=== PATIENT | female | born 1955 | race African-American/Black ===

== ENCOUNTER → 2020-06-22 | Outpatient (CLI) | payer OTHER ==
[~2020-06-22] MED LIST: BAYER CHEWABLE81 MG PO; CELEXA10 MG PO; COZAAR 25 MG TA25 M1 PO; GLYBURIDE 5 MG T5 M1; HYDROCHLOROTHIA25 M2 PO; JANUVIA100 MG PO; LISINOPRIL10 MG; LOVASTAT40 PO; METFORMIN HCL500 MG PO; NEURONTIN 300300 M1 PO; OMEPRAZOLE40 MG PO; PHENERGAN 25 MG25 M1 PO; POTASSIUM20 PO; ZOCOR 10 MG TAB10 MG
== END ==
LOC: LAB 11:15
PROVIDERS: ATTEND Specialist
DX: Z01.812 Encounter for preprocedural laboratory examination (principal); Z20.828 Contact with and (suspected) exposure to other viral communicable diseases

== ENCOUNTER → 2020-06-27 | Outpatient (CLI) | payer OTHER ==
[~2020-06-27] VITALS: Ht 162.6 cm; Wt 104.3 kg
--- NOTE | 2020-06-28 12:53 | P ---
[facility] [place] [address] PROCEDURE REPORT Name: ERROL SORENSEN Room #: REG CHANDA Gregoria#: [id number] Admission: 06/27/20 Attend Phys: Emile Walker Discharge: Date of : 53 Report #: [id number] THIS REPORT FOR: cc: DANDRE EDWARDS Physician not on staff Emile Richardson MD ~ CC: DANDRE Richardson Physician staff DATE OF SERVICE: 06/27/2020 PROCEDURE PERFORMED: Colonoscopy with biopsies. HISTORY OF PRESENT ILLNESS: The patient is a 65-year-old female here for a screening colonoscopy. She denies any symptoms. She does have a family history of colon cancer in her mother. DESCRIPTION OF PROCEDURE: The risks and benefits of the procedure were explained to the patient. Those risks including but not limited to bleeding, perforation and the risk of sedation. She understood these risks and gave informed consent. Sedation was given using propofol per Anesthesia. Next, a digital rectal exam was initially performed, which was normal. Next, using a standard Olympus colonoscope, the scope was placed in the patient's anus and advanced under direct vision to the cecum. The overall prep was excellent. In the cecum, there was a 3 mm sessile polyp, this was removed with cold forceps, otherwise normal. The ileocecal valve was normal. The ascending colon was normal. In the transverse colon, a 5 mm sessile polyp was noted, also removed with cold forceps, otherwise normal. The descending and sigmoid colon were normal. The rectal mucosa was normal. On retroflexion, no abnormalities were noted. The scope was then withdrawn and the procedure terminated. The patient tolerated the procedure well. IMPRESSION: 1. Two small colonic polyps. 2. Otherwise, normal colonoscopy. RECOMMENDATIONS: 1. Await biopsy results. 2. Repeat colonoscopy in 5 years. [facility] [address] [place] [address] PROCEDURE REPORT Name: ERROL SORENSEN Room #: REG [facility].#: [id number] Admission: 06/27/20 Attend Phys: Emile Walker Discharge: Date of : 53 Report #: [id number] Thank you for allowing me to participate in her care. <ELECTRONICALLY SIGNED> By: Emile Richardson MD 06/28/20 1253 1058 1247 Emile Richardson MD /nt
--- NOTE | 2020-06-28 12:53 | P ---
[facility] [place] [address] PROCEDURE REPORT Name: ERROL SORENSEN Room #: REG CHANDA Bush[facility]cruzKattMarycruz#: [id number] Admission: 06/27/20 Attend Phys: Emile Walker Discharge: Date of : 53 Report #: [id number] THIS REPORT FOR: cc: DANDRE EDWARDS Physician not on staff Emile Richardson MD ~ CC: DANDRE Edwards Physician staff DATE OF SERVICE: 06/27/2020 PROCEDURE PERFORMED: Upper endoscopy with esophageal dilation. HISTORY OF PRESENT ILLNESS: The patient is a 65-year-old female with a history of gastroesophageal reflux disease, taking Prilosec on a daily basis. She does complain of dysphagia. Apparently has undergone a previous upper endoscopy with dilation in the past, which was helpful several years ago. She denies any heartburn symptoms. Plan is for EGD and colonoscopy today. DESCRIPTION OF PROCEDURE: The risks and benefits of the procedure were explained to the patient, those risks including but not limited to bleeding, perforation and the risk of sedation. She understood these risks and gave informed consent. Sedation was given using propofol per anesthesia. Next, using a standard Olympus upper endoscope, the scope was placed in the patient's mouth and advanced under direct vision through the esophagus, stomach and into the second portion of the duodenum. The larynx was normal in appearance. The upper and mid esophagus was normal. In the distal esophagus, a mild Schatzki's ring was noted. No evidence of esophagitis. Upon entering the stomach, a small hiatal hernia was noted. Overall, the gastric mucosa was normal. The pylorus was normal and patent. The duodenal bulb, first and second portion were all normal. The scope was then brought back up into the patient's stomach and a Savary guidewire was inserted through the scope, leaving the guidewire in place as the scope was then withdrawn. Next, a 54-Russian Savary dilation of the esophagus was then performed without difficulty. The wire and dilator were removed. The scope was reintroduced into the patient's stomach. A small mucosal tear was noted. No evidence of bleeding. The scope was then withdrawn and the procedure terminated. The patient tolerated the procedure well. IMPRESSION: 1. Mild Schatzki's ring, status post dilation. 2. Small hiatal hernia. 3. Otherwise, normal upper endoscopy. RECOMMENDATIONS: [address] [address] PROCEDURE REPORT Name: COLTEN SORENSENSA Ji Room #: REG [id number] Admission: 06/27/20 Attend Phys: Emile Walker Discharge: Date of : 53 Report #: [id number] 1. Observe the patient post-dilation. 2. Continue daily PPI therapy. 3. We will proceed with screening colonoscopy next today. Thank you for allowing me to participate in her care. <ELECTRONICALLY SIGNED> By: Emile Richardson MD 06/28/20 1253 1038 1312 Emile Richardson MD /nt
--- NOTE | 2020-06-29 17:07 | PATH ---
[facility] [address] [place] [address] PATHOLOGY RPT PROCEDURE Name: CELSA SORENSEN Room #: REG CHITRAMinh Saunders.#: [id number] Admission: 06/27/20 Date of : 53 Discharge: Report #: [id number] Path Case #: [id number] [facility] Accession Number: [id number] . 01 Material submitted: . PART A: cecum - POLYP AT CECUM PART B: colon - POLYP AT TRANSVERSE. Modifiers: transverse . 01 Clinical history: . DYSPHAGIA, SCREENING/FAMILY HX OF COLON CANCER . 02 Diagnosis: A. Polyp, cecum, endoscopic biopsy: - Lymphoid aggregate and hyperplastic changes. - Negative for dysplasia. . B. Polyp, at transverse, endoscopic biopsy: - Tubular adenoma. - Negative for high-grade dysplasia. (IUV:pit 06/29/2020) QTP 06/29/2020 1419 Local . 02 Electronically signed: . Aby Travis MD, Pathologist NPI- [id number] . 01 Gross description: . A. The specimen is received in formalin, labeled "Celsa Sorensen, polyp at cecum". Received are two segments of pale jacobo soft tissue ranging in size from 0.4 to 0.5 cm in maximum dimensions. The specimen is submitted entirely in cassette A1. . B. The specimen is received in formalin, labeled "Celsa Sorensen, polyp at transverse". Received is a segment of pale jacobo soft tissue measuring 0.4 cm in maximum dimensions. The specimen is submitted entirely in cassette B1. (CAA; 06/28/2020) QA/QA 06/28/2020 1055 Local . 02 Pathologist provided ICD-10: D12.3, R13.10, Z12.11, Z80.0 . 02 CPT . 006191, 339612 Specimen Comment: A courtesy copy of this report has been sent to [phone] Specimen Comment: Report sent to / DR EDWARDS Performed at: [address] [place] [address] PATHOLOGY RPT PROCEDURE Name: CELSA SORENSEN Garrison Room #: REG CHANDA Kinney#: [id number] Admission: 06/27/20 Date of : 53 Discharge: Report #: [id number] Path Case #: [id number] [facility] [address] [facility] [address], [place] [id number] MD Martir Rose MD Phone: [phone] Performed at: [address] [id number] MD Aby Travis MD Phone: [phone]
== END | disposition home or self-care (01) ==
LOC: GI 08:01
PROVIDERS: ATTEND Specialist
DX: Z12.11 Encounter for screening for malignant neoplasm of colon (principal); Z80.0 Family history of malignant neoplasm of digestive organs; D12.3 Benign neoplasm of transverse colon; K44.9 Diaphragmatic hernia without obstruction or gangrene; K22.2 Esophageal obstruction; R13.10 Dysphagia, unspecified; K21.9 Gastro-esophageal reflux disease without esophagitis; I10 Essential (primary) hypertension; E11.9 Type 2 diabetes mellitus without complications; E78.5 Hyperlipidemia, unspecified; F32.9 Major depressive disorder, single episode, unspecified; Z98.890 Other specified postprocedural states; Z79.899 Other long term (current) drug therapy; Z79.82 Long term (current) use of aspirin
CPT/HCPCS: 62110; 62900